=== PATIENT | female | born 1995 | race Caucasian/White ===

== ENCOUNTER 2018-06-12 00:07 | Emergency (ER) | payer OTHER, MEDICAID ==
[2018-06-12] MEDS ORDERED: ONDANSETRON (ODT) 4 MG TAB ODT (02:40)
[2018-06-12 02:52] LABS: ADD MAN DIFF? NO
[2018-06-12 02:53] LABS: BASOPHIL # 0.1 10^3/ul (0.0-0.1); BASOPHILS % 0.5 % (0.0-2.0); EOSINOPHILS # 0.2 10^3/ul (0.0-0.5); EOSINOPHILS % 2.2 % (0.0-7.0); HEMATOCRIT 44.9 % (37.0-47.0); HEMOGLOBIN 14.8 g/dl (12.0-16.0); LYMPHOCYTES # 3.3 10^3/ul (0.8-2.9); LYMPHOCYTES % 31.9 % (15.0-51.0); MEAN CORPUSCULAR HEMOGLOBIN 29.2 pg (29.0-33.0); MEAN CORPUSCULAR VOLUME 88.7 fl (82.0-101.0); MEAN PLATELET VOLUME 9.4 fl (7.4-10.4); MONOCYTE # 0.9 10^3/ul (0.3-0.9); MONOCYTES % 8.2 % (0.0-11.0); NEUTROPHIL # 5.9 10^3/ul (1.6-7.5); NEUTROPHILS % 56.9 % (39.0-77.0); PLATELET COUNT 316 10^3/UL (140-415); RED BLOOD COUNT 5.06 10^6/ul (4.20-5.40); RED CELL DISTRIBUTION WIDTH 11.9 % (11.5-14.5)
[2018-06-12 02:53] LABS: WHITE BLOOD COUNT 10.4 10^3/ul (4.8-10.8)
[2018-06-12] MEDS: SOD CHLORIDE 0.9% 1,000 ML IV (03:01)
[2018-06-12] MEDS: METOCLOPRAMIDE 10 MG INJ IV (03:01)
[2018-06-12] MEDS: DIPHENHYDRAMINE 50 MG INJ IV (03:02)
[2018-06-12] MEDS: KETOROLAC 30 MG INJ IV (03:02)
[2018-06-12 03:05] LABS: ADD UMIC YES; UR ASCORBIC ACID NEGATIVE (NEGATIVE); UR BILIRUBIN (Dip) NEGATIVE (NEGATIVE); UR BLOOD (Dip) NEGATIVE (NEGATIVE); UR CLARITY SLIGHTLY CLOUDY (CLEAR); UR COLOR YELLOW (YELLOW); UR GLUCOSE (Dip) NEGATIVE (NEGATIVE); UR KETONES (Dip) NEGATIVE (NEGATIVE); UR LEUKOCYTE ESTERASE (Dip) TRACE Leu/ul (NEGATIVE); UR NITRITE (Dip) NEGATIVE (NEGATIVE); UR RBC 1 /HPF (0-5); UR SQUAMOUS EPITHELIAL CELL FEW /HPF (FEW); UR TOTAL PROTEIN (Dip) NEGATIVE (NEGATIVE); UR UROBILINOGEN (Dip) NEGATIVE (NEGATIVE); UR WBC 1 /HPF (0-5)
[2018-06-12 03:10] LABS: ANION GAP 12 (8-16); BLOOD UREA NITROGEN 11 mg/dl (7-20); CALCIUM 9.3 mg/dl (8.4-10.2); CARBON DIOXIDE 27 mmol/L (21-31); CHLORIDE 107 mmol/L (97-110); CREATININE 0.77 mg/dl (0.44-1.00); GLUCOSE 93 mg/dl (70-220); POTASSIUM 3.8 mmol/L (3.5-5.1); SODIUM 142 mmol/L (135-144)
[2018-06-12 03:12] LABS: INR 0.92; PROTIME 12.4 Sec (11.9-14.9)
[2018-06-12 03:13] LABS: PARTIAL THROMBOPLASTIN TIME 28.7 Sec (25.0-35.0)
== END 2018-06-12 05:31 | disposition home or self-care (01) ==
LOC: FTE 05:31
DX: R51 Headache (principal)
CPT/HCPCS: 36415; 70450; 80048; 81001; 81025; 85025; 85610; 85730; 96374; 96375; 99285-25

== ENCOUNTER 2018-08-07 21:14 | Emergency (ER) | payer OTHER | END 2018-08-07 23:24 | disposition home or self-care (01) | LOC: FTE 21:14 | DX: O99.89 Other specified diseases and conditions complicating pregnancy, childbirth and the puerperium (principal); H10.9 Unspecified conjunctivitis; R40.2412 Glasgow coma scale score 13-15, at arrival to emergency department; Z3A.00 Weeks of gestation of pregnancy not specified | CPT/HCPCS: 81025; 99283 ==

== ENCOUNTER → 2018-09-08 | Outpatient (CLI) | payer OTHER | END | disposition home or self-care (01) | LOC: U/S 09:19 | DX: O36.70X0 Maternal care for viable fetus in abdominal pregnancy, unspecified trimester, not applicable or unspecified (principal); Z3A.00 Weeks of gestation of pregnancy not specified | CPT/HCPCS: 76801; 76817 ==